=== PATIENT | female | born 1990 | race Caucasian/White ===

== ENCOUNTER → 2017-01-15 | Outpatient (CLI) | payer OTHER ==
[2017-01-15 12:22] LABS: PREG INTERNAL NEGATIVE QC NEG CLEAR BACKGROUND; PREG INTERNAL POSITIVE QC POS CONTROL LINE
== END | disposition home or self-care (01) ==
LOC: C.LAB1850 11:10
PROVIDERS: ATTEND Physician Assistant
DX: N92.6 Irregular menstruation, unspecified (principal)

== ENCOUNTER → 2017-01-15 | Outpatient (CLI) | payer OTHER | END | disposition home or self-care (01) | LOC: C.PAPS 18:09 | PROVIDERS: ATTEND Physician Assistant | DX: Z12.4 Encounter for screening for malignant neoplasm of cervix (principal) ==

== ENCOUNTER → 2017-01-31 | Outpatient (CLI) | payer OTHER | END | disposition home or self-care (01) | LOC: C.PATHSPEC 17:35 | PROVIDERS: ATTEND Obstetrics & Gynecology | DX: N72 Inflammatory disease of cervix uteri (principal); N87.1 Moderate cervical dysplasia ==

== ENCOUNTER 2022-01-06 07:43 | Inpatient (IN) ==
[2022-01-06] MEDS ORDERED: OXYTOCIN 30 UNITS/500 ML BAG IV PRN ×2 (07:50)
[2022-01-06 08:29] LABS: Hematocrit (blood only) 36.4 % (37-47); Hemoglobin 12.4 g/dL (12.0-16.0); Mean Corpuscular Hgb Conc 34.1 g/dL (32-36); Mean Corpuscular Volume 96.8 fL (80-100); Mean Platelet Volume 11.4 fL (7.4-10.4); Platelet Count 211 K/uL (130-400); RDW Coefficient of Variation 12.7 % (11.5-14.5); RDW Standard Deviation 44.4 fL (36.4-46.3); Red Blood Count 3.76 M/uL (4.2-5.4); White Blood Count 11.52 K/uL (4.8-10.8)
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
[2022-01-06] MEDS: LACTATED RINGER'S 1,000 ML IV PRN ×3 (09:17→16:53)
--- NOTE | 2022-01-06 13:47 | Labor Progress Brief Note ---
Date of Service January 06, 2022 Subjective bulb out, uncomfortable w/ contraction Assessment & Plan (1) Post term over 40 weeks: Plan: 31 y/o G1 at 41 wga presents for late term iol VSS fetus cat 1 labor - pit at 8, plan arom next gbs neg epidural prn Admission and Anticipated Discharge Date Admission Date: January 06, 2022 Physical Exam Genitourinary: Manual OB Exam: + cervical dilation 4 cm, + cervical effacement 50% and + station -2 OB Exam Monitor Tracing: + external FHT monitor used, + external uterine monitor used (2-4) and + category I (135/mod/+accel/-decel) Results & Data ([facility]) Vital Signs (Past 12 Hours) Vital Signs Temp Pulse Resp BP 01/06/22 13:00 82 128/76 01/06/22 12:02 84 129/74 01/06/22 10:58 98.2 F 96 H 20 129/82 01/06/22 09:59 84 138/82 01/06/22 09:21 85 114/67 01/06/22 07:47 98.1 F 104 H 20 125/74 Coding Level of Care Code None Diagnoses Post term over 40 weeks O48.0
[2022-01-06] MEDS ORDERED: fentaNYL citrate 100 MCG/2 ML VIAL ONE (14:55)
[2022-01-06] MEDS ORDERED: ePHEDrine sulfate 50 MG/ML AMP ONE (14:55)
[2022-01-06] MEDS ORDERED: BUPIVACAINE 0.25% 30 ML VIAL ONE (14:55)
[2022-01-06] MEDS ORDERED: SODIUM CHLORIDE 0.9% INJ 10 ML VIAL ONE (14:55)
[2022-01-06] MEDS ORDERED: fentaNYL 2MCG/ML ROPIVACAINE 1.25MG/ML 100 ML BAG EPI ONE ×2 (14:56→23:16)
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
--- NOTE | 2022-01-06 17:02 | Labor Progress Brief Note ---
Date of Service January 06, 2022 Subjective comfortable w/ epidural Assessment & Plan (1) Post term over 40 weeks: Plan: 31 y/o G1 at 41 wga presents for late term iol VSS fetus cat 1 labor - s/p arom, continue pit augmentation gbs neg epidural in place Admission and Anticipated Discharge Date Admission Date: January 06, 2022 Physical Exam Genitourinary: Manual OB Exam: + cervical dilation 4 cm, + cervical effacement 60%, + station -2 (progressed from last exam) and + amniotic fluid (AROM clear) OB Exam Monitor Tracing: + external FHT monitor used, + external uterine monitor used (2-4) and + category I (125/mod/+accel/-decel) Results [facility]) Vital Signs (Past 12 Hours) Vital Signs Temp Pulse Resp BP Pulse Ox 01/06/22 16:59 72 97 01/06/22 16:54 102 H 98 01/06/22 16:49 89 97 01/06/22 16:44 102 H 97 01/06/22 16:39 87 128/68 96 01/06/22 16:34 89 96 01/06/22 16:30 18 01/06/22 16:29 85 97 01/06/22 16:24 73 126/61 97 01/06/22 16:19 85 108/61 98 01/06/22 16:14 70 98 01/06/22 16:13 70 110/64 01/06/22 16:09 65 111/55 L 97 01/06/22 16:04 79 97 01/06/22 16:03 73 115/64 01/06/22 15:59 85 95 01/06/22 15:58 75 119/63 01/06/22 15:54 81 120/63 97 01/06/22 15:49 86 96 01/06/22 15:47 85 110/58 L 01/06/22 15:45 79 16 106/58 L 01/06/22 15:44 84 96 01/06/22 15:43 78 105/55 L 01/06/22 15:42 18 01/06/22 15:41 82 106/57 L 01/06/22 15:39 80 112/59 L 97 01/06/22 15:37 81 108/57 L 01/06/22 15:35 80 115/59 L 01/06/22 15:34 79 96 01/06/22 15:33 71 113/57 L 01/06/22 15:31 70 20 119/58 L 01/06/22 15:29 83 137/85 95 01/06/22 15:24 103 H 97 01/06/22 15:19 99 H 98 01/06/22 15:14 86 97 01/06/22 15:09 77 97 01/06/22 15:04 84 97 01/06/22 14:59 81 97 01/06/22 14:58 98.6 F 81 18 133/76 01/06/22 14:09 83 123/75 01/06/22 13:00 82 128/76 01/06/22 12:02 84 129/74 01/06/22 10:58 98.2 F 96 H 20 129/82 01/06/22 09:59 84 138/82 01/06/22 09:21 85 114/67 01/06/22 07:47 98.1 F 104 H 20 125/74 Coding Level of Care Code None Diagnoses Post term over 40 weeks O48.0
[2022-01-06] MEDS ORDERED: fentaNYL 2MCG/ML ROPIVACAINE 1.25MG/ML 100 ML BAG EPI PRN (23:14)
[2022-01-06] MEDS ORDERED: NALOXONE HCL 1 MG in SODIUM CHLORIDE 0.9% 1000ML 1,000 ML IV PRN (23:14)
[2022-01-06] MEDS ORDERED: diphenhydrAMINE 50 MG/ML VIAL IV PRN (23:14)
[2022-01-06] MEDS ORDERED: NALBUPHINE HCL INJ 10 MG/ML AMP IV PRN (23:14)
[2022-01-06] MEDS ORDERED: NALOXONE HCL 0.4 MG/1 ML VIAL/CARP IV PRN (23:14)
[2022-01-06] MEDS ORDERED: ePHEDrine sulfate 50 MG/ML AMP IV PRN (23:14)
[2022-01-07] MEDS ORDERED: ACETAMINOPHEN 325 MG TAB PO PRN (00:59)
[2022-01-07] MEDS ORDERED: OXYTOCIN 30 UNITS/500 ML BAG IV PRN (00:59)
[2022-01-07] MEDS ORDERED: DIPHTHERIA/TETANUS/PERTUSSIS 0.5 ML SYR/VIAL IM ONE (00:59)
[2022-01-07] MEDS ORDERED: HYDROCORTISONE ACETATE 25 MG SUPP PR PRN (00:59)
[2022-01-07] MEDS ORDERED: BENZOCAINE 20% AER SPR 82.5 GM CAN EXT PRN (00:59)
--- NOTE | 2022-01-07 01:03 | Delivery Summary ---
Vaginal Delivery Summary Date of Service January 07, 2022 Vaginal Delivery Summary and 3rd Degree LAC PREOPERATIVE DIAGNOSIS: 1. Single intrauterine at 41w1d 2. History of congenital carotid dissection 3. Septate uterus POSTOPERATIVE DIAGNOSIS: 1. Single intrauterine at 41w1d 2. History of congenital carotid dissection 3. Septate uterus 4. Third degree laceration 5. Delivered PROCEDURE: 1. Normal spontaneous vaginal delivery. SURGEON: Jessica Stack MD ANESTHESIA: Epidural. ESTIMATED BLOOD LOSS: 400 mL FLUIDS: Continuous LR. URINE OUTPUT: None. COMPLICATIONS: None. CONDITION: Stable. INDICATIONS: 31 y/o G1 at 41 1/7 wga presented one day ago for late term IOL. Induction was started with barrett bulb and pitocin. Following barrett bulb expulsion, pitocin was titrated up. She received an epidural for pain control and then underwent artificial rupture of membranes. Induction continued until she was complete and desired to push. FINDINGS: A viable female infant, weight pending with Apgars of 8 and 9 at 1 and 5 minutes respectively. SPECIMEN: Cord blood OPERATIVE REPORT: The patient progressed to 10 cm, 100% effaced and +2 station, pushed over intact perineum with anesthesia to deliver a viable male , weight and Apgars as above. Head of delivered in MANDI position. No nuchal cord was present. Body and shoulders were delivered without difficulty. was delivered to maternal abdomen and nursing staff. Delayed cord clamping was performed for 60 seconds. Cord was clamped and cut. Cord blood was obtained. Placenta delivered spontaneously intact with 3-vessel cord. IV oxytocin and fundal massage were given for excellent hemostasis. Vagina, cervix, perineum, and placenta were inspected. A third degree (3B) laceration was noted at this time after rectal exam was performed to confirm anal mucosa was intact. Clindamycin was ordered for the repair due to penicillin allergy. The external anal sphincter was identified and re-approximated using 2-0 vicryl. This was also used to re-enforce the perineal body. The remainder of the tear was repaired in the usual fashion using 3-0 Vicryl. Digital rectal exam was performed and confirmed no stitches in the rectum. Repair was complete at this time. Sponge and needle counts correct x2. No sponges were left behind. Mother and stable in immediate period. [facility] [place]aginal Delivery Charge Vaginal Delivery Codes: 92431 global code for the antepartum, delivery, and post- Delivery Type Details: and 3rd Degree LAC
[2022-01-07] MEDS: IBUPROFEN 600 MG TAB PO PRN ×5 (03:06→23:39)
[2022-01-07] MEDS ORDERED: CLINDAMYCIN/D5W 900 MG/50 ML PREMIX BAG IV SCH (06:00)
[2022-01-07] MEDS ORDERED: CLINDAMYCIN PHOS 900 MG/6 ML VIAL IV SCH (06:00)
--- NOTE | 2022-01-07 08:39 | Anesthesia Procedure Note ---
Date of Service January 07, 2022 Anesthesia Post Epidural Note Vital Signs Vital Signs: Temp Pulse Resp BP Pulse Ox 37.3 C 98 H 16 124/79 98 01/07/22 03:43 01/07/22 03:43 01/07/22 03:43 01/07/22 02:45 01/07/22 03:43 Pain Intensity Abdomen: Pain Intensity: 6 Bilateral Episiotomy/Laceration: Pain Intensity: 6 Notes Mental Status: alert / awake / arousable Nausea / Vomiting: adequately controlled Pain: adequately controlled Airway Patency, RR, SpO2: stable & adequate BP & HR: stable & adequate Hydration State: stable & adequate Neuraxial Anesthesia: was administered and sensory block resolved Anesthetic Complications: no major complications apparent and Pt Satisfied with anesthetic care Epidural: Removed without complications and With tip intact
[2022-01-07] MEDS: DOCUSATE SODIUM 100 MG CAP PO SCH ×2 (09:15→20:33)
[2022-01-07] MEDS: PRENATAL VITAMIN 1 TAB PO SCH (09:16)
[2022-01-07] MEDS ORDERED: bisacodyL 5 MG TABEC PO SCH (20:00)
[2022-01-08] MEDS: IBUPROFEN 600 MG TAB PO PRN ×2 (05:26→08:59)
--- NOTE | 2022-01-08 08:05 | Obstetrical Progress Note ---
Date of Service January 08, 2022 Assessment & Plan (1) Post term over 40 weeks: PPD#1 doing well. No concerns. Routine recovery. Desires discharge home today, reviewed instructions. Followup in office 6w PP. Subjective Ambulation: ambulating normally Voiding: no voiding problems Diet Tolerance:: regular diet Lochia:: Moderate Review of Systems All systems reviewed & are unremarkable except as noted in HPI & below Physical Exam Constitutional WD/WN, vitals as above no acute distress Respiratory normal respiratory effort Cardiovascular Rate/Rhythm: regular rate and regular rhythm Gastrointestinal (Abdomen) Inspection/Auscultation: abdomen normal to inspection; abdomen not distended Percussion/Palpation: abdomen soft Genitourinary OB Exam Abdomen: + fundal height Fundus: + firm; not tender Results & Data ([facility]) Vital Signs (Past 12 Hours) Vital Signs Temp Pulse Resp BP Pulse Ox 01/07/22 23:36 36.8 C 76 18 125/80 96
[2022-01-08 08:26] LABS: Hematocrit (blood only) 33.2 % (37-47); Hemoglobin 11.2 g/dL (12.0-16.0); Mean Corpuscular Hemoglobin 32.7 pg (25-34); Mean Corpuscular Hgb Conc 33.7 g/dL (32-36); Mean Corpuscular Volume 96.8 fL (80-100); Mean Platelet Volume 11.3 fL (7.4-10.4); Platelet Count 214 K/uL (130-400); RDW Coefficient of Variation 13.4 % (11.5-14.5); RDW Standard Deviation 46.8 fL (36.4-46.3); Red Blood Count 3.43 M/uL (4.2-5.4); White Blood Count 20.44 K/uL (4.8-10.8)
[2022-01-08] MEDS: DOCUSATE SODIUM 100 MG CAP PO SCH (08:59)
[2022-01-08] MEDS: PRENATAL VITAMIN 1 TAB PO SCH (08:59)
== END 2022-01-08 11:43 | disposition home or self-care (01) | DRG 768 ==
LOC: 4S1 07:43 → 4E2 01-07 03:16

== ENCOUNTER 2025-02-26 07:40 | Inpatient (IN) ==
[2025-02-26] MEDS ORDERED: LIDOCAINE 1% LOCAL 20 ML VIAL INFIL PRN (08:00)
[2025-02-26] MEDS ORDERED: CALCIUM CARBONATE 500 MG CHEWABLE TAB PO PRN (08:08)
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
[2025-02-26] MEDS: OXYTOCIN 30 UNITS/NSS 30 UNITS/500 ML BAG IV PRN ×2 (08:54→21:18)
[2025-02-26] MEDS: LACTATED RINGER'S 1,000 ML IV PRN (08:54)
[2025-02-26 09:03] LABS: Hematocrit (blood only) 32.8 % (37.0-47.0); Hemoglobin 11.6 g/dl (12.0-16.0); Mean Corpuscular Hemoglobin 34.0 pg (25.0-34.0); Mean Corpuscular Volume 96.2 fL (80.0-100.0); Platelet Count 222 K/uL (130-400); RDW Standard Deviation 46.8 fL (36.4-46.3); Red Blood Count 3.41 M/uL (4.20-5.40); White Blood Count 12.75 K/ul (4.8-10.8)
[2025-02-26] MEDS ORDERED: SODIUM CHLORIDE 0.9% PF INJ 10 ML VIAL ONE (13:56)
[2025-02-26] MEDS ORDERED: ROPIVACAINE 0.5% PF 5 MG/ML 20 ML VIAL EPI PRN (14:11)
[2025-02-26] MEDS ORDERED: BUPIVACAINE 0.25% PF 30 ML VIAL EPI PRN (14:11)
[2025-02-26] MEDS ORDERED: SODIUM CHLORIDE 0.9% PF INJ 10 ML VIAL EPI PRN (14:11)
[2025-02-26] MEDS ORDERED: ONDANSETRON INJ 2 MG/ML 2 ML VIAL IV PRN (14:11)
[2025-02-26] MEDS ORDERED: LIDOCAINE 2% MPF LOCAL 5 ML VIAL EPI PRN (14:11)
[2025-02-26] MEDS ORDERED: fentANYL 2 MCG/ML BUPIVacaine 0.125%-NSS 100ML BAG EPI PRN (14:11)
[2025-02-26] MEDS ORDERED: diphenhydrAMINE 50 MG/ML VIAL IV PRN (14:11)
[2025-02-26] MEDS ORDERED: NALOXONE HCL 1 MG in SODIUM CHLORIDE 0.9% 1,000 ML IV PRN (14:11)
[2025-02-26] MEDS ORDERED: NALOXONE HCL 0.4 MG/1 ML VIAL/CARP IV PRN (14:11)
[2025-02-26] MEDS ORDERED: NALBUPHINE HCL INJ 10 MG/ML AMP IV PRN (14:11)
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
[2025-02-26] MEDS: fentANYL 2 MCG/ML BUPIVacaine 0.125%-NSS 100ML BAG ONE (14:42)
[2025-02-26] MEDS: BUPIVACAINE 0.25% PF 30 ML VIAL ONE (14:43)
[2025-02-26] MEDS: LIDOCAINE 2%/EPINEPHRINE 1:200,000 20 ML PF ONE (14:43)
[2025-02-26] MEDS: BUPIVACAINE 0.25% PF 30 ML VIAL EPI STA (14:55)
[2025-02-26] MEDS: LIDOCAINE 2%/EPINEPHRINE 1:200,000 20 ML PF EPI STA (14:56)
[2025-02-26] MEDS: SODIUM CHLORIDE 0.9% PF INJ 10 ML VIAL EPI STA (14:56)
--- NOTE | 2025-02-26 16:27 | Labor Progress Brief Note ---
Date of Service February 26, 2025 Subjective comfortable Assessment & Plan (1) Encounter for induction of labor: Plan Continue current management. fetus category one. anticipate . Admission and Anticipated Discharge Date Admission Date: February 26, 2025 Physical Exam Physical Exam: cx--4/80/-2 arom--clear toco--q2-3min, pit at 14 efm--130s with mod variability, accels to 150s, no decels. Results & Data Vital Signs (Past 12 Hours) Vital Signs Temp Pulse Resp BP Pulse Ox 02/26/25 16:21 71 02/26/25 16:21 100/56 L 02/26/25 16:20 95 02/26/25 16:20 72 02/26/25 16:15 96 02/26/25 16:15 80 02/26/25 16:10 96 02/26/25 16:10 76 02/26/25 16:06 69 02/26/25 16:06 98/55 L 02/26/25 16:05 96 02/26/25 16:05 75 02/26/25 16:00 96 02/26/25 16:00 76 02/26/25 15:55 97 02/26/25 15:55 72 02/26/25 15:51 73 02/26/25 15:51 106/59 L 02/26/25 15:50 97 02/26/25 15:50 77 02/26/25 15:45 96 02/26/25 15:45 74 02/26/25 15:40 96 02/26/25 15:40 82 02/26/25 15:35 98 02/26/25 15:35 85 02/26/25 15:31 76 02/26/25 15:31 94/52 L 02/26/25 15:30 97 02/26/25 15:30 73 02/26/25 15:29 76 02/26/25 15:29 101/54 L 02/26/25 15:25 96 02/26/25 15:25 77 02/26/25 15:22 79 02/26/25 15:22 102/58 L 02/26/25 15:20 96 02/26/25 15:20 83 02/26/25 15:17 78 02/26/25 15:17 100/59 L 02/26/25 15:15 97 02/26/25 15:15 81 02/26/25 15:12 70 02/26/25 15:12 95/50 L 02/26/25 15:11 94 02/26/25 15:11 75 02/26/25 15:10 96 02/26/25 15:10 71 02/26/25 15:07 75 02/26/25 15:07 99/58 L 02/26/25 15:05 97 02/26/25 15:05 71 02/26/25 15:02 18 02/26/25 15:02 18 02/26/25 15:02 81 02/26/25 15:02 113/72 02/26/25 15:00 97 02/26/25 15:00 77 02/26/25 14:56 81 02/26/25 14:56 106/56 L 02/26/25 14:55 96 02/26/25 14:55 78 02/26/25 14:51 78 02/26/25 14:51 98/52 L 02/26/25 14:50 97 02/26/25 14:50 80 02/26/25 14:49 82 02/26/25 14:49 105/56 L 02/26/25 14:47 91 H 02/26/25 14:47 96/57 L 02/26/25 14:45 96 02/26/25 14:45 85 02/26/25 14:45 81 02/26/25 14:45 101/55 L 02/26/25 14:43 86 02/26/25 14:43 103/52 L 02/26/25 14:41 89 02/26/25 14:41 114/53 L 02/26/25 14:40 96 02/26/25 14:40 88 02/26/25 14:39 90 02/26/25 14:39 120/57 L 02/26/25 14:37 91 H 02/26/25 14:37 107/59 L 02/26/25 14:35 96 02/26/25 14:35 90 02/26/25 14:35 90 02/26/25 14:35 115/58 L 02/26/25 14:33 89 02/26/25 14:33 111/57 L 02/26/25 14:30 97 02/26/25 14:30 91 H 02/26/25 14:25 98 02/26/25 14:25 96 H 02/26/25 14:20 97 02/26/25 14:20 99 H 02/26/25 14:15 98 02/26/25 14:15 92 H 02/26/25 13:54 86 02/26/25 13:54 110/68 02/26/25 12:00 18 02/26/25 12:00 36.7 C 18 02/26/25 12:00 81 02/26/25 12:00 97/54 L 02/26/25 11:00 18 02/26/25 11:00 18 02/26/25 11:00 81 02/26/25 11:00 109/60 02/26/25 10:01 20 02/26/25 10:01 20 02/26/25 10:01 87 02/26/25 10:01 101/60 02/26/25 07:51 36.8 C 20 02/26/25 07:45 36.8 C 122 H 20 128/65 Coding Level of Care Code None Diagnoses Encounter for induction of labor Z34.90
--- NOTE | 2025-02-26 19:16 | Labor Progress Brief Note ---
Date of Service February 26, 2025 Subjective comfortable Assessment & Plan (1) Encounter for induction of labor: Plan Continue current management. fetus category one. anticipate . Admission and Anticipated Discharge Date Admission Date: February 26, 2025 Physical Exam Physical Exam: cx--5/100/-2 toco--q2-3min, pit at 14 efm--130s with mod variability, accels to 150s, no decels Results & Data Vital Signs (Past 12 Hours) Vital Signs Temp Pulse Resp BP Pulse Ox 02/26/25 19:10 98 02/26/25 19:10 78 02/26/25 19:06 86 02/26/25 19:06 117/72 02/26/25 19:05 100 02/26/25 19:05 88 02/26/25 19:00 99 02/26/25 19:00 89 02/26/25 18:55 91 02/26/25 18:55 96 H 02/26/25 18:51 90 02/26/25 18:51 114/63 02/26/25 18:50 97 02/26/25 18:50 88 02/26/25 18:45 98 02/26/25 18:45 88 02/26/25 18:40 97 02/26/25 18:40 92 H 02/26/25 18:36 103 H 02/26/25 18:36 118/66 02/26/25 18:35 97 02/26/25 18:35 98 H 02/26/25 18:30 97 02/26/25 18:30 99 H 02/26/25 18:25 96 02/26/25 18:25 76 02/26/25 18:21 75 02/26/25 18:21 108/60 02/26/25 18:20 97 02/26/25 18:20 80 02/26/25 18:15 96 02/26/25 18:15 83 02/26/25 18:10 97 02/26/25 18:10 87 02/26/25 18:07 79 02/26/25 18:07 111/60 02/26/25 18:05 96 02/26/25 18:05 80 02/26/25 18:00 96 02/26/25 18:00 86 02/26/25 17:55 97 02/26/25 17:55 90 02/26/25 17:51 83 02/26/25 17:51 110/63 02/26/25 17:50 95 02/26/25 17:50 80 02/26/25 17:45 96 02/26/25 17:45 84 02/26/25 17:40 97 02/26/25 17:40 79 02/26/25 17:38 81 02/26/25 17:38 113/64 02/26/25 17:35 97 02/26/25 17:35 96 H 02/26/25 17:30 96 02/26/25 17:30 83 02/26/25 17:25 97 02/26/25 17:25 87 02/26/25 17:20 95 02/26/25 17:20 84 02/26/25 17:15 95 02/26/25 17:15 79 02/26/25 17:10 95 02/26/25 17:10 79 02/26/25 17:07 94 02/26/25 17:07 82 02/26/25 17:06 18 02/26/25 17:06 36.9 C 18 02/26/25 17:06 77 02/26/25 17:06 105/61 02/26/25 17:05 96 02/26/25 17:05 80 02/26/25 17:00 96 02/26/25 17:00 83 02/26/25 16:55 96 02/26/25 16:55 81 02/26/25 16:51 71 02/26/25 16:51 101/57 L 02/26/25 16:50 95 02/26/25 16:50 81 02/26/25 16:45 96 02/26/25 16:45 77 02/26/25 16:40 96 02/26/25 16:40 79 02/26/25 16:36 75 02/26/25 16:36 107/55 L 02/26/25 16:35 96 02/26/25 16:35 75 02/26/25 16:30 95 02/26/25 16:30 72 02/26/25 16:25 95 02/26/25 16:25 74 02/26/25 16:21 71 02/26/25 16:21 100/56 L 02/26/25 16:20 95 02/26/25 16:20 72 02/26/25 16:15 96 02/26/25 16:15 80 02/26/25 16:10 96 02/26/25 16:10 76 02/26/25 16:06 16 02/26/25 16:06 36.8 C 16 02/26/25 16:06 69 02/26/25 16:06 98/55 L 02/26/25 16:05 96 02/26/25 16:05 75 02/26/25 16:00 96 02/26/25 16:00 76 02/26/25 15:55 97 02/26/25 15:55 72 02/26/25 15:51 73 02/26/25 15:51 106/59 L 02/26/25 15:50 97 02/26/25 15:50 77 02/26/25 15:45 96 02/26/25 15:45 74 02/26/25 15:40 96 02/26/25 15:40 82 02/26/25 15:35 98 02/26/25 15:35 85 02/26/25 15:31 76 02/26/25 15:31 94/52 L 02/26/25 15:30 97 02/26/25 15:30 73 02/26/25 15:29 76 02/26/25 15:29 101/54 L 02/26/25 15:25 96 02/26/25 15:25 77 02/26/25 15:22 79 02/26/25 15:22 102/58 L 02/26/25 15:20 96 02/26/25 15:20 83 02/26/25 15:17 78 02/26/25 15:17 100/59 L 02/26/25 15:15 97 02/26/25 15:15 81 02/26/25 15:12 70 02/26/25 15:12 95/50 L 02/26/25 15:11 94 02/26/25 15:11 75 02/26/25 15:10 96 02/26/25 15:10 71 02/26/25 15:07 75 02/26/25 15:07 99/58 L 02/26/25 15:05 97 02/26/25 15:05 71 02/26/25 15:02 18 02/26/25 15:02 18 02/26/25 15:02 81 02/26/25 15:02 113/72 02/26/25 15:00 97 02/26/25 15:00 77 02/26/25 14:56 81 02/26/25 14:56 106/56 L 02/26/25 14:55 96 02/26/25 14:55 78 02/26/25 14:51 78 02/26/25 14:51 98/52 L 02/26/25 14:50 97 02/26/25 14:50 80 02/26/25 14:49 82 02/26/25 14:49 105/56 L 02/26/25 14:47 91 H 02/26/25 14:47 96/57 L 02/26/25 14:45 96 02/26/25 14:45 85 02/26/25 14:45 81 02/26/25 14:45 101/55 L 02/26/25 14:43 86 02/26/25 14:43 103/52 L 02/26/25 14:41 89 02/26/25 14:41 114/53 L 02/26/25 14:40 96 02/26/25 14:40 88 02/26/25 14:39 90 02/26/25 14:39 120/57 L 02/26/25 14:37 91 H 02/26/25 14:37 107/59 L 02/26/25 14:35 96 02/26/25 14:35 90 02/26/25 14:35 90 02/26/25 14:35 115/58 L 02/26/25 14:33 89 02/26/25 14:33 111/57 L 02/26/25 14:30 97 02/26/25 14:30 91 H 02/26/25 14:25 98 02/26/25 14:25 96 H 02/26/25 14:20 97 02/26/25 14:20 99 H 02/26/25 14:15 98 02/26/25 14:15 92 H 02/26/25 13:54 86 02/26/25 13:54 110/68 02/26/25 12:00 18 02/26/25 12:00 36.7 C 18 02/26/25 12:00 81 02/26/25 12:00 97/54 L 02/26/25 11:00 18 02/26/25 11:00 18 02/26/25 11:00 81 02/26/25 11:00 109/60 02/26/25 10:01 20 02/26/25 10:01 20 02/26/25 10:01 87 02/26/25 10:01 101/60 02/26/25 07:51 36.8 C 20 02/26/25 07:45 36.8 C 122 H 20 128/65 Coding Level of Care Code None Diagnoses Encounter for induction of labor Z34.90
[2025-02-26] MEDS: ACETAMINOPHEN 325 MG TAB PO PRN (19:23)
[2025-02-26] MEDS: METHYLERGONOVINE MALEATE 0.2 MG/ML AMP IM STA (20:55)
--- NOTE | 2025-02-26 21:17 | Delivery Summary ---
Vaginal Delivery Summary Date of Service February 26, 2025 Vaginal Delivery Summary and 3rd Degree LAC Pre-operative Diagnosis: at 40 3/7 iol hx of third degree laceration Post-operative Diagnosis: same Procedure: pitocin iol epidural arom third degree laceration and reapir QBL: 357 Anesthesia: epidural Procedure: Patient is a 34yowf who presents for iol for postdates. Admited, cervix favorable, pitocin induction, epidural, arom. The patient progressed to c/c/+2. The patient pushed for two contractions to deliver a viable female in nikki position. The nose and mouth were bulb suctioned on the perineum and the rest of the infant was then delivered without difficulty. The baby was vigorous. The nose and mouth were again bulb suctioned and the was placed in the maternal abdomen for drying and attention. Cord was clamped and cut at one minute of life. Cord blood and segment obtained. Placenta delivered spontaneous, intact with a three vessel cord. Cervix/sulci/rectum were intact. A third degree perineal laceration was repaired by reapproximating the rectal sphincter with 3 [id number] sutures of 2-0 vicryl. The rest was then repaired with 3-0 vicryl in a standard fashion. Several rectal exams revealed no sutures in the rectum and a good reappoximation. Hemostasis obtained with dilute pitocin and fundal massage, IM methergine. Apgars were 8/9. Mother and baby doing well at the end of the delivery. MNP Vaginal Delivery Charge Delivery Type Details: and 3rd Degree LAC
[2025-02-26] MEDS ORDERED: HYDROCORTISONE ACETATE 25 MG SUPP PR PRN (21:50)
[2025-02-26] MEDS ORDERED: BENZOCAINE 20% SPRY 85 APPLN/85 GM CAN EXT PRN (21:50)
[2025-02-26] MEDS ORDERED: DIPHTHER/TETAN/PERTUS Vaccine (Tdap, Adol/Adult) 0.5mL IM ONE (21:50)
[2025-02-26] MEDS ORDERED: OXYTOCIN 30 UNITS/NSS 30 UNITS/500 ML BAG IV PRN (21:50)
[2025-02-26] MEDS: ONDANSETRON INJ 2 MG/ML 2 ML VIAL IV ONE (21:59)
[2025-02-26] MEDS: IBUPROFEN 600 MG TAB PO PRN (22:26)
[2025-02-27] MEDS: ACETAMINOPHEN 325 MG TAB PO PRN (01:32)
[2025-02-27 06:33] LABS: Hematocrit (blood only) 31.7 % (37.0-47.0); Hemoglobin 11.0 g/dl (12.0-16.0)
--- NOTE | 2025-02-27 06:35 | Obstetrical Progress Note ---
Date of Service February 27, 2025 Assessment & Plan (1) care and examination: Plan: Patient is PP post status day 1 with complication of third degree laceration repair. Patient has some residual numbness in her left knee making it difficult to ambulate. Will continue to monitor. Admission and Anticipated Discharge Date Admission Date: February 26, 2025 Supervising Physician Co-Signing Physician Notes Resident Physician Supervision Note: I interviewed and examined the patient. Discussed with Dr. Seo and agree with findings and plan as documented in the note. Any exceptions or clarifications are listed here: Doing well. Notes some resolving left knee numbness from her epidural. Bottom feeling ok. Routine care. Documented By: Kayleigh Cee MD, FACOG Subjective 34 yo post- day 1 s/p [] w/ third degree laceration repair Ambulation: Patient admits to her left knee being numb. Nurse admitted they have to use the wheelchair to help her pivot into the bathroom. Voiding: no voiding problems Passing Gas:: Yes Diet Tolerance:: regular diet Feeding Type:: breast feeding with bottle supplementation Current Pain Level:Improving. She gives the pain a 3-4/10 and says the pain in her butt is "not great". Resting comfortably this AM in NAD. Patient admits to nausea. Patient admits to a little bit of discomfort while urinating. Patient also admits to a little bleeding. Patient also has a headache but has a history of migraines. Denies fever/chills, IBRAHIM, CP/palp, SOB/cough/wheeze, V, LE pain, breast pain/dschrg, Review of Systems Review of Systems: as per subjective HPI Physical Exam Constitutional: WD/WN, vitals as above Respiratory: normal respiratory effort, lungs clear to auscultation Cardiovascular: RRR, no murmur, no edema Extremities: no calf tenderness and no edema Gastrointestinal (Abdomen): Percussion/Palpation: + abdomen tender (LLQ) and abdomen soft Skin: no rashes, warm and dry Psychiatric: Eye Contact: good eye contact Speech: normal rate/rhy thm/volume of speech Thought Process: linear/logical thought process Genitourinary: uterus 1cm above umbilicus Results & Data Vital Signs (Past 12 Hours) Vital Signs Temp Pulse Pulse Resp BP BP Pulse Ox 02/27/25 04:30 36.7 C 72 16 113/74 98 02/27/25 00:00 37 C 80 18 112/72 100 02/26/25 23:15 97 02/26/25 23:15 83 02/26/25 23:10 96 02/26/25 23:10 87 02/26/25 23:06 84 02/26/25 23:06 111/62 02/26/25 23:05 96 02/26/25 23:05 89 02/26/25 23:00 95 02/26/25 23:00 87 02/26/25 22:55 96 02/26/25 22:55 89 02/26/25 22:51 93 H 02/26/25 22:51 125/66 02/26/25 22:50 95 02/26/25 22:50 88 02/26/25 22:45 96 02/26/25 22:45 98 H 02/26/25 22:40 97 02/26/25 22:40 76 02/26/25 22:36 81 02/26/25 22:36 130/60 02/26/25 22:35 97 02/26/25 22:35 80 02/26/25 22:30 96 02/26/25 22:30 81 02/26/25 22:25 96 02/26/25 22:25 86 02/26/25 22:21 83 02/26/25 22:21 130/60 02/26/25 22:20 95 02/26/25 22:20 81 02/26/25 22:15 96 02/26/25 22:15 90 02/26/25 22:10 96 02/26/25 22:10 81 02/26/25 22:06 85 02/26/25 22:06 134/59 L 02/26/25 22:05 95 02/26/25 22:05 91 H 02/26/25 22:00 95 02/26/25 22:00 85 02/26/25 21:55 97 02/26/25 21:55 88 02/26/25 21:51 87 02/26/25 21:51 127/62 02/26/25 21:50 97 02/26/25 21:50 86 02/26/25 21:45 97 02/26/25 21:45 94 H 02/26/25 21:45 103 H 02/26/25 21:45 122/75 02/26/25 21:40 96 02/26/25 21:40 97 H 02/26/25 21:36 104 H 02/26/25 21:36 122/84 02/26/25 21:35 97 02/26/25 21:35 102 H 02/26/25 21:30 96 02/26/25 21:30 93 H 02/26/25 21:25 96 02/26/25 21:25 95 H 02/26/25 21:21 91 H 02/26/25 21:21 123/58 L 02/26/25 21:20 96 02/26/25 21:20 92 H 02/26/25 21:15 96 02/26/25 21:15 90 02/26/25 21:10 96 02/26/25 21:10 96 H 02/26/25 21:06 93 H 02/26/25 21:06 112/56 L 02/26/25 21:05 96 02/26/25 21:05 95 H 02/26/25 21:00 97 02/26/25 21:00 100 H 02/26/25 20:55 96 02/26/25 20:55 102 H 02/26/25 20:54 106 H 02/26/25 20:54 118/58 L 02/26/25 20:50 96 02/26/25 20:50 108 H 02/26/25 20:45 98 02/26/25 20:45 116 H 02/26/25 20:40 98 02/26/25 20:40 105 H 02/26/25 20:37 100 H 02/26/25 20:37 125/69 02/26/25 20:35 96 02/26/25 20:35 99 H 02/26/25 20:30 97 02/26/25 20:30 113 H 02/26/25 20:25 97 02/26/25 20:25 95 H 02/26/25 20:22 89 02/26/25 20:22 122/73 02/26/25 20:20 97 02/26/25 20:20 88 02/26/25 20:15 97 02/26/25 20:15 91 H 02/26/25 20:10 96 02/26/25 20:10 93 H 02/26/25 20:06 84 02/26/25 20:06 110/74 02/26/25 20:05 95 02/26/25 20:05 92 H 02/26/25 20:00 96 02/26/25 20:00 93 H 02/26/25 19:55 97 02/26/25 19:55 81 02/26/25 19:52 84 02/26/25 19:52 120/67 02/26/25 19:50 98 02/26/25 19:50 90 02/26/25 19:45 97 02/26/25 19:45 79 02/26/25 19:40 97 02/26/25 19:40 81 02/26/25 19:36 81 02/26/25 19:36 115/66 02/26/25 19:35 97 02/26/25 19:35 86 02/26/25 19:30 96 02/26/25 19:30 86 02/26/25 19:25 97 02/26/25 19:25 81 02/26/25 19:22 83 02/26/25 19:22 117/67 02/26/25 19:20 97 02/26/25 19:20 87 02/26/25 19:15 18 02/26/25 19:15 36.6 C 18 02/26/25 19:15 97 02/26/25 19:15 88 02/26/25 19:10 98 02/26/25 19:10 78 02/26/25 19:06 86 02/26/25 19:06 117/72 02/26/25 19:05 100 02/26/25 19:05 88 02/26/25 19:00 99 02/26/25 19:00 89 02/26/25 18:55 91 02/26/25 18:55 96 H 02/26/25 18:51 90 02/26/25 18:51 114/63 02/26/25 18:50 97 02/26/25 18:50 88 02/26/25 18:45 98 02/26/25 18:45 88 02/26/25 18:40 97 02/26/25 18:40 92 H 02/26/25 18:36 103 H 02/26/25 18:36 118/66 02/26/25 18:35 97 02/26/25 18:35 98 H 02/26/25 18:30 97 02/26/25 18:30 99 H O2 Del Method 02/27/25 04:30 Room Air 02/27/25 00:00 Room Air 02/26/25 23:15 02/26/25 23:15 02/26/25 23:10 02/26/25 23:10 02/26/25 23:06 02/26/25 23:06 02/26/25 23:05 02/26/25 23:05 02/26/25 23:00 02/26/25 23:00 02/26/25 22:55 02/26/25 22:55 02/26/25 22:51 02/26/25 22:51 02/26/25 22:50 02/26/25 22:50 02/26/25 22:45 02/26/25 22:45 02/26/25 22:40 02/26/25 22:40 02/26/25 22:36 02/26/25 22:36 02/26/25 22:35 02/26/25 22:35 02/26/25 22:30 02/26/25 22:30 02/26/25 22:25 02/26/25 22:25 02/26/25 22:21 02/26/25 22:21 02/26/25 22:20 02/26/25 22:20 02/26/25 22:15 02/26/25 22:15 02/26/25 22:10 02/26/25 22:10 02/26/25 22:06 02/26/25 22:06 02/26/25 22:05 02/26/25 22:05 02/26/25 22:00 02/26/25 22:00 02/26/25 21:55 02/26/25 21:55 02/26/25 21:51 02/26/25 21:51 02/26/25 21:50 02/26/25 21:50 02/26/25 21:45 02/26/25 21:45 02/26/25 21:45 02/26/25 21:45 02/26/25 21:40 02/26/25 21:40 02/26/25 21:36 02/26/25 21:36 02/26/25 21:35 02/26/25 21:35 02/26/25 21:30 02/26/25 21:30 02/26/25 21:25 02/26/25 21:25 02/26/25 21:21 02/26/25 21:21 02/26/25 21:20 02/26/25 21:20 02/26/25 21:15 02/26/25 21:15 02/26/25 21:10 02/26/25 21:10 02/26/25 21:06 02/26/25 21:06 02/26/25 21:05 02/26/25 21:05 02/26/25 21:00 02/26/25 21:00 02/26/25 20:55 02/26/25 20:55 02/26/25 20:54 02/26/25 20:54 02/26/25 20:50 02/26/25 20:50 02/26/25 20:45 02/26/25 20:45 02/26/25 20:40 02/26/25 20:40 02/26/25 20:37 02/26/25 20:37 02/26/25 20:35 02/26/25 20:35 02/26/25 20:30 02/26/25 20:30 02/26/25 20:25 02/26/25 20:25 02/26/25 20:22 02/26/25 20:22 02/26/25 20:20 02/26/25 20:20 02/26/25 20:15 02/26/25 20:15 02/26/25 20:10 02/26/25 20:10 02/26/25 20:06 02/26/25 20:06 02/26/25 20:05 02/26/25 20:05 02/26/25 20:00 02/26/25 20:00 02/26/25 19:55 02/26/25 19:55 02/26/25 19:52 02/26/25 19:52 02/26/25 19:50 02/26/25 19:50 02/26/25 19:45 02/26/25 19:45 02/26/25 19:40 02/26/25 19:40 02/26/25 19:36 02/26/25 19:36 02/26/25 19:35 02/26/25 19:35 02/26/25 19:30 02/26/25 19:30 02/26/25 19:25 02/26/25 19:25 02/26/25 19:22 02/26/25 19:22 02/26/25 19:20 02/26/25 19:20 02/26/25 19:15 02/26/25 19:15 02/26/25 19:15 02/26/25 19:15 02/26/25 19:10 02/26/25 19:10 02/26/25 19:06 02/26/25 19:06 02/26/25 19:05 02/26/25 19:05 02/26/25 19:00 02/26/25 19:00 02/26/25 18:55 02/26/25 18:55 02/26/25 18:51 02/26/25 18:51 02/26/25 18:50 02/26/25 18:50 02/26/25 18:45 02/26/25 18:45 02/26/25 18:40 02/26/25 18:40 02/26/25 18:36 02/26/25 18:36 02/26/25 18:35 02/26/25 18:35 02/26/25 18:30 02/26/25 18:30 Laboratory Results 02/27/25 02/26/25 Range/Units 06:06 08: WBC 12.75 H (4.8-10.8) K/ul RBC 3.41 L (4.20-5.40) M/uL Hgb 11.0 L 11.6 L (12.0-16.0) g/dl Hct 31.7 L 32.8 L (37.0-47.0) % MCV 96.2 (80.0-100.0) fL MCH 34.0 (25.0-34.0) pg MCHC 35.4 (32.0-36.0) g/dL RDW Std Deviation 46.8 H (36.4-46.3) fL RDW Coeff of Debbie 13.5 (11.5-14.5) % Plt Count 222 (130-400) K/uL MPV 9.9 (9.4-12.4) fL Treponema pallidum Ab Negative (Negative)
--- NOTE | 2025-02-27 06:46 | Anesthesia Procedure Note ---
Date of Service February 27, 2025 Anesthesia Post Epidural Note Vital Signs Vital Signs: Temp Pulse Resp BP Pulse Ox O2 Del Method 36.7 C 72 16 113/74 98 Room Air 02/27/25 04:30 02/27/25 04:30 02/27/25 04:30 02/27/25 04:30 02/27/25 04:30 02/27/25 04:30 Notes Mental Status: alert / awake / arousable and participated in evaluation Nausea / Vomiting: adequately controlled Pain: adequately controlled Airway Patency, RR, SpO2: stable & adequate BP & HR: stable & adequate Hydration State: stable & adequate Neuraxial Anesthesia: was administered and sensory block is resolving Anesthetic Complications: no major complications apparent and Pt Satisfied with anesthetic care Epidural: Removed without complications and With tip intact
[2025-02-27] MEDS: PRENATAL VITAMIN 1 TAB PO SCH (08:31)
[2025-02-27] MEDS: DOCUSATE SODIUM 100 MG CAP PO SCH (08:31)
[2025-02-27 22:56] VITALS: RESP 18; O2SAT 97
--- NOTE | 2025-02-28 05:54 | Obstetrical Progress Note ---
Date of Service February 28, 2025 Assessment & Plan (1) care and examination: Plan: Patient is currently stable. Patient's left knee numbness is completely gone. Patient desires to go home. Will discharge today. Admission and Anticipated Discharge Date Admission Date: February 26, 2025 Supervising Physician Co-Signing Physician Notes Resident Physician Supervision Note: I interviewed and examined the patient. Discussed with Dr. Seo and agree with findings and plan as documented in the note. Any exceptions or clarifications are listed here: [ ] Documented By: Anisa Dave MD, FACOG Subjective 34 yo post- day 2 s/p [] w/ third degree laceration repair Ambulation: Walking normally. Once they took the epidural tubing out patient's left knee numbness went away. Voiding: no voiding problems Passing Gas:: Yes Diet Tolerance:: regular diet Feeding Type:: breast feeding with bottle supplementation Current Pain Level:Improving. She gives the pain a 3/10. Describes her pain as "crampy". States that the Tylenol and Motrin help. Resting comfortably this AM in NAD. Patient also has a headache but has a history of migraines. Denies fever/chills, IBRAHIM, CP/palp, SOB/cough/wheeze, V, LE pain, breast pain/dsch rg, UTI Sx Review of Systems Review of Systems: as per subjective HPI Physical Exam Constitutional: WD/WN, vitals as above Respiratory: normal respiratory effort, lungs clear to auscultation Cardiovascular: RRR, no murmur, no edema Extremities: no calf tenderness and no edema Gastrointestinal (Abdomen): Percussion/Palpation: abdomen soft; abdomen nontender Skin: no rashes, warm and dry Psychiatric: Eye Contact: good eye contact Speech: normal rate/rhythm/volume of speech Thought Process: linear/logical thought process Genitourinary: uterus was firm and at the level of the umbilicus. Results & Data Vital Signs (Past 12 Hours) Vital Signs Temp Pulse Resp BP Pulse Ox O2 Del Method 02/27/25 22:54 36.9 C 81 18 113/68 97 Room Air 02/27/25 19:00 37.2 C 81 16 98/61 L 96 Room Air Laboratory Results 02/27/25 Range/Units 06:06 Hgb 11.0 L (12.0-16.0) g/dl Hct 31.7 L (37.0-47.0) %
[2025-02-28 08:08] VITALS: BP 103/65; PULSE 84; TEMP 98.1
== END 2025-02-28 11:25 | disposition home or self-care (01) | DRG 768 ==
LOC: 4S1 07:40 → 4E2 23:30